=== PATIENT | male | born 1975 | race Caucasian/White ===

== ENCOUNTER 2023-11-09 07:15 | Day surgery (SDC) | payer OTHER, SELFPAY ==
[2023-10-13 10:22] VITALS: BMI 28.0
[2023-10-29 14:13] VITALS: BMI 27.7
--- NOTE | 2023-11-08 21:49 | PM.HPGS ---
History of Present Illness History of Present Illness Consent: Risks, benefits, and alternatives have been discussed and questions answered. Patient agrees to proceed with procedure. Chief complaint: Neoplasm Screening Narrative: Shiv Pelaez is a 48 year old male who is referred for colon cancer screening. Review of Systems Review of Systems: All systems reviewed & are unremarkable except as noted in HPI and below PMFSH Family History Family History Father Depression Heart problem Mother Breast cancer Diabetes mellitus Sibling Hypertension Social History Social History Social History: smokes 1 cigarette per day, never a regular smoker. When he was younger he smoked 2-3 per day. 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 Spiritual care concerns: No Meds Home Medications and Allergies Home Medications Medication Instructions Recorded Confirmed Type No Home Medications 10/09/23 11/09/23 History Allergies Allergy/AdvReac Type Severity Reaction Status Date / Time Penicillins Allergy Intermediate Rash Verified 11/09/23 08:19 Exam Const: General: alert Orientation/consciousness: patient oriented x3 Resp: Auscultation: clear to auscultation bilaterally Cardio: Rhythm: regular rhythm GI: GI Palp: Yes Soft to palpation and No Tenderness to palpation present (GI) Neuro: General: patient oriented x3 Assessment and Plan Assessment and plan (1) Colon cancer screening: Code(s): Z12.11 - Encounter for screening for malignant neoplasm of colon Status: Acute Assessment and Plan: Colonoscopy with possible biopsy or polypectomy or cautery or injection of substances.
[2023-11-09 08:21] VITALS: BMI 27.3
[2023-11-09 08:32] VITALS: BP 121/96; PULSE 78; RESP 20; TEMP 36.4; O2SAT 96
--- NOTE | 2023-11-09 08:54 | WPDANESEPPF ---
Anes - Initial Pre Proc Eval Procedure: Operation Date: 11/09/23 09:30 Proposed Procedures p Screening Colonoscopy - Eloy Martinez MD Date/Time: 11/09/23 08:54 Surgeon: Eloy Martinez MD Pre Op Diagnosis: Neoplasm Screening Patient Data Age: 48 Gender: M Height: 1.83 m Weight: 91.7 kg Last Vital Signs Temp 36.4 C L 11/09/23 08:32 Pulse 78 11/09/23 08:32 Resp 20 11/09/23 08:32 BP 121/96 H 11/09/23 08:32 Pulse Ox 96 11/09/23 08:32 O2 Del Method Room Air 11/09/23 08:32 Allergies Allergy/AdvReac Type Severity Reaction Status Date / Time Penicillins Allergy Intermediate Rash Verified 11/09/23 08:19 Home Medications Medication Instructions Recorded Confirmed Type No Home Medications 10/09/23 11/09/23 History Patient hx anesthesia problems: none Family hx anesthesia problems: none Results Review: All pre-operative results and documents have been reviewed as part of the pre-operative evaluation. [facility] Family History Family History Father Depression Heart problem Mother Breast cancer Diabetes mellitus Sibling Hypertension Social History Social History Social History: smokes 1 cigarette per day, never a regular smoker. When he was younger he smoked 2-3 per day. 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 Informed Consent: The patient's anesthetic plan and its attendant risks and benefits were discussed with the patient/family/POA. Questions were solicited and answers provided to the satisfaction of the patient/family/POA.
[2023-11-09] MEDS: LACTATED RINGERS 1,000 ML 150 ML IV CONT (09:07)
[2023-11-09 10:00] VITALS: BP 109/75; PULSE 81; RESP 18; O2SAT 97
[2023-11-09 10:10] VITALS: BP 110/76; PULSE 77; RESP 20; O2SAT 99
[2023-11-09 10:20] VITALS: BP 116/84; PULSE 68; RESP 20; O2SAT 100
--- NOTE | 2023-11-09 10:24 | WPDANESPN ---
Anes - Prog Note Post-Op Date/Time: 11/09/23 10:24 Cardiovascular status: normal Respiratory status: normal Airway patency: baseline Mental status: baseline Post-Op hydration status: normal Vital Signs: Last Vital Signs Temp 36.4 C L 11/09/23 08:32 Pulse 68 11/09/23 10:20 Resp 20 11/09/23 10:20 BP 116/84 11/09/23 10:20 Pulse Ox 100 11/09/23 10:20 O2 Del Method Room Air 11/09/23 10:20 Pain Score (VAS): 0 I/O: Intake & Output 11/08/23 11/09/23 11/09/23 23:59 07:59 15:59 Intake Total 300 Balance 300 Patient Feedback: Patient satisfied with anesthetic care.
== END 2023-11-09 10:25 | disposition home or self-care (01) ==
PROVIDERS: PCP Nurse Practitioner Family; Visit Provider Internal Medicine Gastroenterology
PROC: 0DJD8ZZ Inspection of Lower Intestinal Tract, Via Natural or Artificial Opening Endoscopic (ICD-10-PCS; CPT 45378; principal; 2023-11-09 09:30)
DX: Z12.11 Encounter for screening for malignant neoplasm of colon (principal)
CPT/HCPCS: 45378